=== PATIENT | male | born 1980 | race African-American/Black ===

== ENCOUNTER 2017-07-28 20:06 | Emergency (ER) | payer OTHER ==
[2017-07-28 22:08] LABS: ABSOLUTE EOSINOPHILS # (AUTO) 0.2 10^3/uL (0.0-0.6); ABSOLUTE LYMPHOCYTES (AUTO) 2.8 10^3/uL (0.5-4.7); ABSOLUTE MONOCYTES (AUTO) 0.5 10^3/uL (0.1-1.4); ABSOLUTE NEUT (AUTO) 2.8 10^3/uL (1.7-8.2); BASOPHILS % (AUTO) 0.6 % (0-2); EOSINOPHILS % (AUTO) 2.7 % (0-6); HEMATOCRIT 42.2 % (37.9-51.0); HEMOGLOBIN 14.5 g/dL (13.5-17.0); LYMPHOCYTES % (AUTO) 43.9 % (13-45); MEAN CORPUSCULAR HGB CONC 34.4 g/dL (32.0-36.0); MEAN CORPUSCULAR VOLUME 93 fl (80-97); MONOCYTES % (AUTO) 8.1 % (3-13); PLATELET COUNT 322 10^3/uL (150-450); RED BLOOD COUNT 4.54 10^6/uL (4.35-5.55); RED CELL DISTRIBUTION WIDTH 11.9 % (11.5-14.0); SEGMENTED NEUTROPHILS % (AUTO) 44.7 % (42-78); TOTAL CELLS COUNTED % (AUTO) 100 %; WHITE BLOOD COUNT 6.3 10^3/uL (4.0-10.5)
[2017-07-28 22:10] LABS: APPEARANCE,URINE CLEAR; BILIRUBIN,URINE NEGATIVE (NEGATIVE); COLOR,URINE DARK YELLOW; GLUCOSE, URINE NEGATIVE (NEGATIVE); KETONES,URINE TRACE mg/dL (NEGATIVE); LEUKOCYTE ESTERASE,URINE NEGATIVE (NEGATIVE); NITRITE,URINE NEGATIVE (NEGATIVE); PROTEIN,URINE 30 mg/dL (NEGATIVE); URINE SPECIFIC GRAVITY 1.032
[2017-07-28 22:28] LABS: ALANINE AMINOTRANSFERASE 23 U/L (21-72); ALBUMIN 4.7 g/dL (3.5-5.0); ALKALINE PHOSPHATASE 42 U/L (38-126); ANION GAP 11 (5-19); ASPARTATE AMINO TRANSFERASE 27 U/L (17-59); BILIRUBIN,DIRECT 0.1 mg/dL (0.0-0.4); BILIRUBIN,TOTAL 0.8 mg/dL (0.2-1.3); BLOOD UREA NITROGEN 12 mg/dL (7-20); CALCIUM 9.8 mg/dL (8.4-10.2); CARBON DIOXIDE 31 mmol/L (22-30); CHLORIDE 101 mmol/L (98-107); GLUCOSE 93 mg/dL (75-110); LIPASE 73.4 U/L (23-300); POTASSIUM 3.7 mmol/L (3.6-5.0); SODIUM 142.9 mmol/L (137-145); TOTAL PROTEIN 7.7 g/dL (6.3-8.2)
--- NOTE | 2017-07-28 22:52 | ER Document Report ---
ED GI/ - General Mode of Arrival: Ambulatory Information source: Patient TRAVEL OUTSIDE OF THE [place] IN LAST 30 DAYS: No <MOE SPARROW - Last Filed: 07/29/17 01:11> <SANDRA KERN - Last Filed: 07/29/17 02:15> - General Chief Complaint: Abdominal Pain Stated Complaint: ABDOMINAL PAIN Time Seen by Provider: 07/28/17 22:12 Notes: Patient is a 37-year-old male who presents to the emergency department today with complaints of right upper quadrant abdominal pain. Patient states he has had pain 3 or 4 times over the last month. Patient states he has been awake since 0300 yesterday when he had an attack. Patient states he seems to have these attacks after having food late at night and it always occurs when he is lying down in bed. Patient states he has vomited but denies any nausea or diarrhea. (MOE SPARROW) - Related Data Allergies/Adverse Reactions: No Known Allergies Allergy (Unverified 07/28/17 20:10) Past Medical History - General Information source: Patient - Social History Smoking Status: Current Some Day Smoker Cigarette use (# per day): Yes Frequency of alcohol use: Occasional Drug Abuse: None Lives with: Family Family History: Reviewed & Not Pertinent - Medical History Medical History: Negative Surgical Hx: Negative <MOE SPARROW - Last Filed: 07/29/17 01:11> Review of Systems - Review of Systems Constitutional: No symptoms reported EENT: No symptoms reported Cardiovascular: No symptoms reported Respiratory: No symptoms reported Gastrointestinal: See HPI, Abdominal pain, Vomiting. denies: Diarrhea, Nausea Genitourinary: No symptoms reported Male Genitourinary: No symptoms reported Musculoskeletal: No symptoms reported Skin: No symptoms reported Hematologic/Lymphatic: No symptoms reported Neurological/Psychological: No symptoms reported -: Yes All other systems reviewed and negative <MOE SPARROW - Last Filed: 07/29/17 01:11> Physical Exam - Vital signs Interpretation: Normal - General General appearance: Appears well, Alert - HEENT Head: Normocephalic, Atraumatic Eyes: Normal Pupils: PERRL - Respiratory Respiratory status: No respiratory distress Chest status: Nontender Breath sounds: Normal Chest palpation: Normal - Cardiovascular Rhythm: Regular Heart sounds: Normal auscultation Murmur: No - Abdominal Inspection: Normal Distension: No distension Bowel sounds: Normal Tenderness: Tender, Jane's sign. No: Guarding, Rebound Organomegaly: No organomegaly - Back Back: Normal, Nontender - Extremities General upper extremity: Normal inspection, Nontender, Normal color, Normal ROM , Normal temperature General lower extremity: Normal inspection, Nontender, Normal color, Normal ROM , Normal temperature, Normal weight bearing. No: Marlen's sign - Neurological Neuro grossly intact: Yes Cognition: Normal Orientation: AAOx4 [place] Coma Scale Eye Opening: Spontaneous Suzie Coma Scale Verbal: Oriented [place] Coma Scale Motor: Obeys Commands [place] Coma Scale Total: 15 Speech: Normal Motor strength normal: LUE, RUE, LLE, RLE Sensory: Normal - Psychological Associated symptoms: Normal affect, Normal mood - Skin Skin Temperature: Warm Skin Moisture: Dry Skin Color: Normal <SANDRA KERN - Last Filed: 07/29/17 02:15> - Vital signs Vitals: Temp Pulse Resp BP Pulse Ox 98.6 F 58 L 18 122/69 96 07/28/17 20:40 07/28/17 20:40 07/28/17 20:40 07/28/17 20:40 07/28/17 20:40 Course - Laboratory Result Diagrams: 07/28/17 21:53 07/28/17 21:53 <MOE SPARROW - Last Filed: 07/29/17 01:11> - Laboratory Result Diagrams: 07/28/17 21:53 07/28/17 21:53 - Diagnostic Test Radiology reviewed: Reports reviewed <SANDRA KERN - Last Filed: 07/29/17 02:15> - Re-evaluation Re-evalutation: Patient with no pain or nausea at this time. Gallstones on ultrasound and history is consistent with biliary colic. Blood work within normal limits. Patient has been given instructions about diet for gallbladder disease. He is to follow-up with surgery. Understands and agrees with plan. Able to take p.o. Stable for discharge. (SANDRA KERN) - Vital Signs Vital signs: Temp Pulse Resp BP Pulse Ox 98.6 F 58 L 18 113/80 100 07/28/17 20:40 07/29/17 01:46 07/29/17 01:46 07/29/17 01:46 07/29/17 01:46 - Laboratory Laboratory results interpreted by me: 07/28/17 07/28/17 21:53 21:53 Carbon Dioxide 31 H Urine Protein 30 H Urine Ketones TRACE H Urine Blood SMALL H Urine Urobilinogen 2.0 H Discharge <MOE SPARROW - Last Filed: 07/29/17 01:11> <SANDRA KERN - Last Filed: 07/29/17 02:15> - Discharge Clinical Impression: Gallstones Condition: Stable Disposition: HOME, SELF-CARE Instructions: Gallbladder Disease ([facility]), Low-Fat Diet ([facility]) Prescriptions: Dicyclomine HCl [Bentyl 20 mg Tablet] 20 mg PO TIDP PRN #20 tablet PRN Reason: Ondansetron [Zofran Odt 4 mg Tablet] 1 - 2 tab PO Q4H PRN #15 tab.rapdis PRN Reason: For Nausea/Vomiting Forms: Return to Work Referrals: DINAH CEDENO MD [CHYNA SETHI] - Follow up in 3-5 days Scribe Attestation: 07/29/17 02:14 I personally performed the services described in the documentation, reviewed and edited the documentation which was dictated to the scribe in my presence, and it accurately records my words and actions. (SANDRA KERN) Scribe Documentation - Scribe Written by Scribe:: Cirilo Finley, 07/29/2017 [id number] acting as scribe for :: Rosey <MOE SPARROW - Last Filed: 07/29/17 01:11>
[2017-07-28] MEDS ORDERED: NORMAL SALINE 1000 ML 1,000 ML IV ONE (22:53)
--- NOTE | 2017-07-29 00:28 | RADIOLOGY REPORT (SQ) ---
EXAM DESCRIPTION: U/S ABDOMEN LIMITED W/O DOP CLINICAL HISTORY: 37 years, Male, RUQ pain, vomit COMPARISON: None. LIMITATIONS: Body habitus. FINDINGS: Cholelithiasis. Negative sonographic Jane's test. No gallbladder wall thickening, no pericholecystic fluid, and no hepatobiliary ductal dilation. Common bile duct diameter 0.3 cm. Partially obscured pancreas. Aorta, liver, vasculature, and 11 cm right kidney appear otherwise unremarkable. IMPRESSION: No acute findings. Cholelithiasis. Limitation.
[2017-07-29] MEDS ORDERED: ONDANSETRON ODT 4 MG TAB (6 TAB/ER DISP) PO PRN (00:36)
[2017-07-29 01:49] VITALS: BP 113/80
== END 2017-07-29 01:31 | disposition home or self-care (01) ==
LOC: ER 20:06
DX: K80.20 Calculus of gallbladder without cholecystitis without obstruction (principal); R10.11 Right upper quadrant pain; R11.11 Vomiting without nausea; F17.210 Nicotine dependence, cigarettes, uncomplicated
CPT/HCPCS: 99284; 96360; 36415; 83690; 85025; 80053; 81001; 76705; J7030